=== PATIENT | female | born 1930 | race Caucasian/White ===

== ENCOUNTER 2017-11-24 23:48 | Inpatient (IN) | payer MEDICARE, OTHER ==
[~2017-11-24] VITALS: Ht 160 cm; Wt 70.3 kg
[~2017-11-24 23:48] MED LIST: ATOR20TA PO; CARV6.2512 PO; DIGO125T PO; HYDR25TA6 PO; LETR2.5T PO; LEVO750T26 PO; LOSA50TA6 PO; WARF2.5T73 PO-COUM; WARF5TAB PO
[2017-11-25] VITALS (7 sets, daily range): BP systolic 84–128; BP diastolic 50–66
[2017-11-25 00:27] LABS: BASOPHILS # (AUTO) 0.03 x10^3/uL (0-0.1); BASOPHILS % (AUTO) 1 % (0-1); EOSINOPHILS # (AUTO) 0.12 x10^3/uL (0-0.4); EOSINOPHILS % (AUTO) 2 % (1-7); LYMPHOCYTES # (AUTO) 1.42 x10^3/uL (1-3.4); LYMPHOCYTES % (AUTO) 21 % (22-44); MD NO; MEAN CORPUSCULAR HEMOGLOBIN 30.4 pg (27.0-34.8); MEAN CORPUSCULAR HGB CONC 33.5 g/dL (32.4-35.8); MEAN CORPUSCULAR VOLUME 90.7 fL (80-100); MEAN PLATELET VOLUME 10.6 fL (7.4-10.4); MONOCYTES # (AUTO) 0.58 x10^3/uL (0.2-0.8); MONOCYTES % (AUTO) 9 % (2-9); NEUTROPHILS # (AUTO) 4.58 x10^3/uL (1.8-6.8); NEUTROPHILS % (AUTO) 68 % (42-75); PLATELET COUNT 172 x10^3/uL (130-400); RED BLOOD COUNT 3.97 x10^6/uL (3.82-5.3); RED CELL DISTRIBUTION WIDTH 15.4 % (9.6-15.2)
[2017-11-25] MEDS ORDERED: SODIUM CHLORIDE FLUSH 10ML SYR IVF ONE (00:30)
[2017-11-25 00:33] LABS: INTERNATIONAL NORMALIZED RATIO 2.26 (0.93-1.1); PROTHROMBIN TIME 23.1 Seconds (9.6-11.5)
[2017-11-25 00:36] LABS: ALANINE AMINOTRANSFERASE 18 U/L (12-78); ALBUMIN 3.2 g/dL (3.4-5.0); ANION GAP 6 mmol/L (5-15); CALCIUM 9.1 mg/dL (8.5-10.1); CHLORIDE 97 mmol/L (98-107); CREATININE 0.76 mg/dL (0.55-1.02)
[2017-11-25 00:40] LABS: ALKALINE PHOSPHATASE 152 U/L (45-117); BILIRUBIN,TOTAL 0.9 mg/dL (0.2-1.0); TOTAL PROTEIN 7.4 g/dL (6.4-8.2)
[2017-11-25 00:44] LABS: TROPONIN I 0.152 ng/mL (0.000-0.045)
[2017-11-25] MEDS ORDERED: FUROSEMIDE 40 MG/4 ML ONE (00:46)
[2017-11-25] MEDS ORDERED: ASPIRIN 81 MG TABLET CHEW ONE (00:46)
[2017-11-25] MEDS ORDERED: ASPIRIN 325 MG TABLET PO ONE (01:00)
[2017-11-25] MEDS ORDERED: FUROSEMIDE 40 MG/4 ML IV ONE (01:00)
[2017-11-25] MEDS ORDERED: ONDANSETRON 2MG/ML, 2ML IVPush PRN (04:30)
[2017-11-25] MEDS ORDERED: DOCUSATE 100 MG CAPSULE PO PRN (04:30)
[2017-11-25] MEDS ORDERED: hydrALAzine 20 MG/ML, 1ML IVPush PRN (04:30)
[2017-11-25] MEDS ORDERED: ONDANSETRON ODT 4 MG PO PRN (04:30)
[2017-11-25] MEDS ORDERED: morphine SULFATE 10 MG/ML, 1ML IVPush PRN (04:30)
[2017-11-25] MEDS ORDERED: POLYETHYLENE GLYCOL 17 GM PACKET PO PRN (04:30)
[2017-11-25] MEDS ORDERED: BISACODYL 10 MG SUPP PR PRN (04:30)
[2017-11-25] MEDS ORDERED: ACETAMINOPHEN 325 MG TABLET PO PRN (04:30)
[2017-11-25] MEDS ORDERED: PROMETHAZINE 25 MG/ML, 1ML IM PRN (04:30)
[2017-11-25] MEDS ORDERED: OXYcodone/APAP 5/325MG TABLET PO PRN (04:30)
[2017-11-25 05:18] LABS: FREE T4 (FREE THYROXINE) 1.25 ng/dL (0.76-1.46); THYROID STIMULATING HORMONE 3.15 mIU/L (0.358-3.740)
[2017-11-25 05:47] LABS: MICROSCOPIC AUTO
[2017-11-25 05:48] LABS: CULTURE INDICATED? YES
[2017-11-25 06:27] LABS: BASOPHILS # (AUTO) 0.03 x10^3/uL (0-0.1); BASOPHILS % (AUTO) 1 % (0-1); EOSINOPHILS % (AUTO) 2 % (1-7); LYMPHOCYTES # (AUTO) 1.37 x10^3/uL (1-3.4); LYMPHOCYTES % (AUTO) 25 % (22-44); MD NO; MEAN CORPUSCULAR HEMOGLOBIN 29.8 pg (27.0-34.8); MEAN CORPUSCULAR HGB CONC 32.9 g/dL (32.4-35.8); MEAN CORPUSCULAR VOLUME 90.6 fL (80-100); MEAN PLATELET VOLUME 10.2 fL (7.4-10.4); MONOCYTES # (AUTO) 0.69 x10^3/uL (0.2-0.8); MONOCYTES % (AUTO) 13 % (2-9); NEUTROPHILS # (AUTO) 3.26 x10^3/uL (1.8-6.8); NEUTROPHILS % (AUTO) 60 % (42-75); PLATELET COUNT 155 x10^3/uL (130-400); RED BLOOD COUNT 3.72 x10^6/uL (3.82-5.3); RED CELL DISTRIBUTION WIDTH 15.3 % (9.6-15.2)
[2017-11-25 06:40] LABS: ALBUMIN 2.9 g/dL (3.4-5.0); ANION GAP 4 mmol/L (5-15); CHLORIDE 97 mmol/L (98-107)
[2017-11-25 06:42] LABS: TROPONIN I 0.142 ng/mL (0.000-0.045)
[2017-11-25 06:43] LABS: ALANINE AMINOTRANSFERASE 17 U/L (12-78); ALKALINE PHOSPHATASE 137 U/L (45-117); BILIRUBIN,TOTAL 1.1 mg/dL (0.2-1.0); CHOL/HDL RATIO 2.1; CHOLESTEROL, TOTAL 64 mg/dL (140-239); CREATININE 0.84 mg/dL (0.55-1.02); HDL CHOL % 48 % (28-40); HDL CHOLESTEROL (DIRECT) 31 mg/dL (40-60); LDL CHOLESTEROL,CALCULATED 19 mg/dL (54-169); LDL/HDL RATIO 0.6 (0.5-3.0); TOTAL PROTEIN 6.8 g/dL (6.4-8.2); TRIGLYCERIDES 70 mg/dL (50-200); VLDL CHOLESTEROL 14 mg/dL (0-25)
[2017-11-25] MEDS ORDERED: ALBUTEROL/IPRATROPIUM 2.5MG/0.5MG, 3 ML NPPB SCH (07:00)
[2017-11-25] MEDS ORDERED: FURO20TA3 PO (09:18)
[2017-11-25] MEDS ORDERED: LOSA25TA5 PO (09:18)
[2017-11-25] MEDS ORDERED: CARV6.252 PO (09:18)
[2017-11-25] MEDS ORDERED: HYDR25TA6 PO (09:18)
[2017-11-25] MEDS ORDERED: WARF1TAB9 PO (09:18)
[2017-11-25] MEDS ORDERED: ATOR40TA78 PO (09:18)
[2017-11-25] MEDS ORDERED: POTA20TA14 PO (09:18)
[2017-11-25] MEDS ORDERED: DIGO125T PO (09:19)
[2017-11-25] MEDS ORDERED: CIPR7.5D OT (09:19)
[2017-11-25] MEDS ORDERED: OMNIPAQUE 350 MG/ML, 100ML BOTTLE ONE (10:20)
[2017-11-25] MEDS: FUROSEMIDE 20 MG/2 ML IV SCH (10:20)
[2017-11-25] MEDS ORDERED: MAGNESIUM SULFATE PMX 2GM/50ML 50 ML IV ONE (10:30)
[2017-11-25] MEDS: MAGNESIUM CHLORIDE 64 MG TABLET.DR PO SCH ×2 (12:48→20:33)
[2017-11-25 13:22] LABS: TROPONIN I 0.129 ng/mL (0.000-0.045)
[2017-11-25] MEDS ORDERED: WARFARIN 2.5 MG TABLET PO-COUM SCH (18:00)
[2017-11-25] MEDS: CARVEDILOL 6.25 MG TABLET PO SCH (18:04)
[2017-11-25] MEDS: ATORVASTATIN 40 MG TABLET PO SCH (20:34)
[2017-11-26 00:20] VITALS: BP 118/64
[2017-11-26 04:51] LABS: INTERNATIONAL NORMALIZED RATIO 2.07 (0.93-1.1); PROTHROMBIN TIME 21.2 Seconds (9.6-11.5)
[2017-11-26 08:00] VITALS: BP 112/66
[2017-11-26] MEDS: FUROSEMIDE 20 MG/2 ML IV SCH (08:35)
[2017-11-26] MEDS: MAGNESIUM CHLORIDE 64 MG TABLET.DR PO SCH ×2 (08:35→21:46)
[2017-11-26] MEDS: DIGOXIN 0.125 MG TABLET PO SCH (08:45)
[2017-11-26] MEDS: CARVEDILOL 6.25 MG TABLET PO SCH ×2 (08:45→17:38)
[2017-11-26] MEDS: LOSARTAN 25MG TABLET PO SCH (11:00)
[2017-11-26] MEDS ORDERED: ALBUTEROL/IPRATROPIUM 2.5MG/0.5MG, 3 ML NPPB SCH (11:00)
[2017-11-26] MEDS: CEFTRIAXONE PMX 1GM/50ML 50 ML IV SCH (11:16)
[2017-11-26 13:28] VITALS: BP 97/62
[2017-11-26] MEDS: SPIRONOLACTONE 25 MG TABLET PO SCH (14:02)
[2017-11-26] MEDS ORDERED: WARFARIN 2.5 MG TABLET PO-COUM ONE (18:00)
[2017-11-26 19:54] VITALS: BP 119/71
[2017-11-26] MEDS: ATORVASTATIN 40 MG TABLET PO SCH (21:46)
[2017-11-27 01:38] VITALS: BP 110/61
[2017-11-27 05:29] LABS: INTERNATIONAL NORMALIZED RATIO 2.06 (0.93-1.1); PROTHROMBIN TIME 21.1 Seconds (9.6-11.5)
[2017-11-27 05:37] LABS: ANION GAP 6 mmol/L (5-15); CALCIUM 8.7 mg/dL (8.5-10.1); CHLORIDE 101 mmol/L (98-107)
[2017-11-27 05:38] LABS: CREATININE 1.13 mg/dL (0.55-1.02)
[2017-11-27 07:55] VITALS: BP 116/62
[2017-11-27] MEDS ORDERED: WARFARIN 2.5 MG TABLET PO-COUM ONE ×2 (09:30→18:00)
[2017-11-27] MEDS: LOSARTAN 25MG TABLET PO SCH (09:52)
[2017-11-27] MEDS: MAGNESIUM CHLORIDE 64 MG TABLET.DR PO SCH (09:52)
[2017-11-27] MEDS: SPIRONOLACTONE 25 MG TABLET PO SCH (09:53)
[2017-11-27] MEDS: FUROSEMIDE 20 MG/2 ML IV SCH (09:53)
[2017-11-27] MEDS ORDERED: FURO20TA3 PO (10:24)
[2017-11-27] MEDS ORDERED: SPIR25TA PO (10:24)
[2017-11-27] MEDS ORDERED: MAGN64TA7 PO (10:24)
[2017-11-27] MEDS ORDERED: CEFD300C37 PO (10:24)
[2017-11-27] MEDS: DIGOXIN 0.125 MG TABLET PO SCH (10:31)
[2017-11-27] MEDS: CARVEDILOL 6.25 MG TABLET PO SCH (10:32)
[2017-11-27] MEDS: CEFTRIAXONE PMX 1GM/50ML 50 ML IV SCH (11:13)
== END 2017-11-27 12:20 | disposition home or self-care (01) | DRG 280 ==
LOC: ED 11-25 01:05 → EDIP 11-25 01:10 → 5SO 11-25 01:39 → DCLOUNGE 11-27 12:00
PROVIDERS: ADMIT Internal Medicine; ATTEND Internal Medicine
DX: I21.4 Non-ST elevation (NSTEMI) myocardial infarction (principal); I50.23 Acute on chronic systolic (congestive) heart failure; J96.21 Acute and chronic respiratory failure with hypoxia; E44.0 Moderate protein-calorie malnutrition; E87.1 Hypo-osmolality and hyponatremia; N39.0 Urinary tract infection, site not specified; D68.69 Other thrombophilia; J98.11 Atelectasis; E78.5 Hyperlipidemia, unspecified; H54.8 Legal blindness, as defined in USA; Z87.891 Personal history of nicotine dependence; Z90.13 Acquired absence of bilateral breasts and nipples; Z85.3 Personal history of malignant neoplasm of breast; B96.20 Unspecified Escherichia coli [E. coli] as the cause of diseases classified elsewhere; I48.2 Chronic atrial fibrillation; I25.2 Old myocardial infarction; I11.0 Hypertensive heart disease with heart failure; Z79.01 Long term (current) use of anticoagulants; Z79.82 Long term (current) use of aspirin; Z99.81 Dependence on supplemental oxygen; J44.9 Chronic obstructive pulmonary disease, unspecified; I77.819 Aortic ectasia, unspecified site; K80.20 Calculus of gallbladder without cholecystitis without obstruction; I08.3 Combined rheumatic disorders of mitral, aortic and tricuspid valves; Z68.27 Body mass index [BMI] 27.0-27.9, adult; Z98.42 Cataract extraction status, left eye; Z98.41 Cataract extraction status, right eye
CPT/HCPCS: 36415; 71045; 71275; 80048; 80053; 80061; 80162; 81001; 83036; 83735; 83880; 84439; 84443; 84484; 85025; 85610; 85730; 87077; 87086; 87186; 93005; 93306; 94640; 99291; J0696; J1940; J7620; Q9967; J3475